=== PATIENT | male | born 1980 | race Caucasian/White ===

== ENCOUNTER → 2025-05-13 14:08 | Outpatient (REF) | payer BC, SELFPAY | LOC: HWRAD 14:08 | PROVIDERS: ATTENDING PHYSICIAN Physician Assistant Medical | DX: R10.32 Left lower quadrant pain (principal) | CPT/HCPCS: 76882 ==

== ENCOUNTER → 2025-05-27 06:39 | Outpatient (REF) | payer BC, SELFPAY | LOC: RAD 06:39 | PROVIDERS: ATTENDING PHYSICIAN Physician Assistant Medical | DX: R10.32 Left lower quadrant pain (principal); R19.04 Left lower quadrant abdominal swelling, mass and lump | CPT/HCPCS: 74177; Q9967 ==